=== PATIENT | male | born 1955 | race Caucasian/White ===

== ENCOUNTER 2021-11-28 10:01 | Observation (INO) | payer OTHER ==
[~2021-11-28] VITALS: Ht 185.5 cm; Wt 99.7 kg
[2021-11-28] MEDS ORDERED: ADENOSINE 6 MG/2 ML (ADENOCARD) VIAL IV ONE ×2 (10:14→10:30)
[2021-11-28] MEDS ORDERED: dilTIAZem DRIP PRE-MIX 125 ML IV ONE (10:19)
[2021-11-28] MEDS ORDERED: ASPIRIN 81 MG CHEW (CHILDREN'S ASA) PO ONE ×2 (10:30→10:45)
[2021-11-28] MEDS ORDERED: dilTIAZem DRIP PRE-MIX 125 ML IV SCH ×2 (10:30)
--- NOTE | 2021-11-28 10:32 | ED Cardiac General ---
History of Present Illness General Chief Complaint: Cardiac/General Problems Stated Complaint: TACHY,CP,SOB Source: patient Exam Limitations: no limitations History of Present Illness Date Seen by Provider: Nov 28, 2021 Time Seen by Provider: 10:04 Initial Comments Patient to the ER by [facility] from [facility] where he was accepted in transfer with chief complaint that he has been having a GI bug similar to his with nausea vomiting diarrhea over the past couple days in the past 2 days however he has felt worn out tired with palpitations and tugging in his chest bu t no pain in his chest. He went to the ER in [place], [place] and they thought at first maybe he had SVT gave him 500 cc of saline and Identicard 6 mg followed by 12 mg which revealed underlying atrial flutter. 10 mg Cardizem IV push and transferred to our facility. Patient had good blood pressure at that time and did not need cardioversion electrically. Patient does not follow with a doctor and therefore has no known medical history. He does not smoke cigarettes. He has been using Imodium and Pepto-Bismol for his diarrhea. ASA po BURRER MARKER AXLE: No Allergies and Home Medications Allergies Coded Allergies: No Known Drug Allergies (Unverified , 11/28/21) Patient Home Medication List Home Medication List Reviewed: Yes Review of Systems Review of Systems Constitutional: No chills, No diaphoresis EENTM: No Blurred Vision, No Double Vision Respiratory: Denies Cough, Denies Shortness of Air Cardiovascular: Denies Chest Pain, Denies Lightheadedness Gastrointestinal: See HPI; Denies Abdominal Pain, Denies Constipated; Diarrhea, Nausea; Denies Poor Appetite; Vomiting Genitourinary: Denies Burning, Denies Discharge Musculoskeletal: No back pain, No joint pain All Other Systems Reviewed Negative Unless Noted: Yes Past Wyarono-Frxlcb-Exdoux Hx Patient Social History Tobacco Use?: No Use of E-Cig and/or Vaping dev: No Substance use?: No Alcohol Use?: Yes Alcohol Frequency: Daily Pt feels they are or have been: No Immunizations Up To Date First/Initial COVID19 Vaccinat: 2020 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 oz. kg; BMI Method: General Appearance: WD/WN, Mild Distress HEENT: PERRL/EOMI, Pharynx Normal, Moist Mucous Membranes Neck: Full Range of Motion, Normal Inspection Respiratory: Lungs Clear, Normal Breath Sounds, No Accessory Muscle Use, No Respiratory Distress Cardiovascular: Regular Rate, Rhythm, No Edema, Normal Peripheral Pulses, Tachycardia (160) Gastrointestinal: Normal Bowel Sounds, Non Tender, Soft Extremity: Normal Capillary Refill, Normal Inspection, No Pedal Edema Neurologic/Psychiatric: Alert, Oriented x3, No Motor/Sensory Deficits Skin: Normal Color, Warm/Dry Progress/Results/Core Measures Results/Orders Lab Results Laboratory Tests Test 11/28/21 10:15 Range/Units White Blood Count 9.2 4.3-11.0 10^3/uL Red Blood Count 4.77 4.30-5.52 10^6/uL Hemoglobin 13.4 13.3-17.7 g/dL Hematocrit 43 40-54 % Mean Corpuscular Volume 90 80-99 fL Mean Corpuscular Hemoglobin 28 25-34 pg Mean Corpuscular Hemoglobin Concent 31 L 32-36 g/dL Red Cell Distribution Width 13.4 10.0-14.5 % Platelet Count 248 130-400 10^3/uL Mean Platelet Volume 10.9 9.0-12.2 fL Immature Granulocyte % (Auto) 1 % Neutrophils (%) (Auto) 68 42-75 % Lymphocytes (%) (Auto) 13 12-44 % Monocytes (%) (Auto) 18 H 0-12 % Eosinophils (%) (Auto) 1 0-10 % Basophils (%) (Auto) 0 0-10 % Neutrophils # (Auto) 6.2 1.8-7.8 10^3/uL Lymphocytes # (Auto) 1.2 1.0-4.0 10^3/uL Monocytes # (Auto) 1.7 H 0.0-1.0 10^3/uL Eosinophils # (Auto) 0.1 0.0-0.3 10^3/uL Basophils # (Auto) 0.0 0.0-0.1 10^3/uL Immature Granulocyte # (Auto) 0.1 0.0-0.1 10^3/uL Prothrombin Time 13.9 12.2-14.7 SEC INR Comment 1.0 0.8-1.4 Activated Partial Thromboplast Time 28 24-35 SEC Sodium Level 133 L 135-145 MMOL/L Potassium Level 3.9 3.6-5.0 MMOL/L Chloride Level 98 98-107 MMOL/L Carbon Dioxide Level 23 21-32 MMOL/L Anion Gap 12 5-14 MMOL/L Blood Urea Nitrogen 15 7-18 MG/DL Creatinine 1.29 0.60-1.30 MG/DL Estimat Glomerular Filtration Rate 62 BUN/Creatinine Ratio 12 Glucose Level 112 H 70-105 MG/DL Calcium Level 8.9 8.5-10.1 MG/DL Corrected Calcium 9.2 8.5-10.1 MG/DL Magnesium Level 2.1 1.6-2.4 MG/DL Total Bilirubin 0.5 0.1-1.0 MG/DL Aspartate Amino Transf (AST/SGOT) 15 5-34 U/L Alanine Aminotransferase (ALT/SGPT) 13 0-55 U/L Alkaline Phosphatase 55 40-136 U/L Myoglobin 52.9 10.0-92.0 NG/ML Troponin I 0.395 *H <0.028 NG/ML Total Protein 6.1 L 6.4-8.2 GM/DL Albumin 3.6 3.2-4.5 GM/DL My Orders Orders - SUSIE VALADEZ Adenosine Injection (Adenocard Injection (11/28/21 10:14) Diltiazem Drip Pre-Mix (Cardizem Drip Pr (11/28/21 10:19) Diltiazem Drip Pre-Mix (Cardizem Drip Pr (11/28/21 10:30) Diltiazem Drip Pre-Mix (Cardizem Drip Pr (11/28/21 10:30) Diltiazem Injection (Cardizem Injection) (11/28/21 10:30) Adenosine Injection (Adenocard Injection (11/28/21 10:30) Cbc With Automated Diff (11/28/21 10:26) Magnesium (11/28/21 10:26) Chest 1 View, Ap/Pa Only (11/28/21 10:26) Comprehensive Metabolic Panel (11/28/21 10:26) Myoglobin Serum (11/28/21 10:26) Protime With Inr (11/28/21 10:26) Partial Thromboplastin Time (11/28/21 10:26) O2 (11/28/21 10:26) Lipid Panel (11/29/21 06:00) Ed Iv/Invasive Line Start (11/28/21 10:26) Troponin I George (11/28/21 10:26) Aspirin Chewable Tablet (Baby Aspirin Ch (11/28/21 10:30) Apixaban Tablet (Eliquis Tablet) (11/28/21 10:45) Aspirin Chewable Tablet (Baby Aspirin Ch (11/28/21 10:45) Ed Iv/Invasive Line Start (11/28/21 10:37) Lactated Ringers (Lr 1000 Ml Iv Solution (11/28/21 10:45) Ekg Tracing (11/28/21 10:38) Ekg Tracing (11/28/21 10:38) Medications Given in ED Current Medications Medications Dose Ordered Sig/Yoselyn Route Start Time Stop Time Status Last Admin Dose Admin Adenosine 12 mg ONCE ONCE IV 11/28/21 10:30 11/28/21 10:31 DC 11/28/21 10:29 12 MG Apixaban 5 mg ONCE ONCE PO 11/28/21 10:45 11/28/21 10:46 DC 11/28/21 11:16 5 MG Aspirin 324 mg ONCE ONCE PO 11/28/21 10:30 11/28/21 10:31 DC 11/28/21 10:31 324 MG Diltiazem HCl 10 mg ONCE ONCE IVP 11/28/21 10:30 11/28/21 10:31 DC 11/28/21 10:31 10 MG Lactated Ringer's 1,000 ml @ 0 mls/hr Q0M ONCE IV 11/28/21 10:45 11/28/21 10:46 DC 11/28/21 11:17 0 MLS/HR Vital Signs/I&O 11/28/21 10:01 Temp 36.4 Pulse 161 Resp 18 B/P (MAP) 114/88 (97) Pulse Ox 95 O2 Delivery Room Air Progress Progress Note : Time: 10:36 Progress Note A single dose of 12 mg Identicard was given which revealed underlying atrial flutter at a rate of about 160. Gave him an additional 10 mg Cardizem, Eliquis and a liter of lactated Ringer's and will check electrolytes, kidney function labs and repeat a troponin here. Initial ECG Impression Date: Nov 28, 2021 Initial ECG Impression Time: 10:07 Initial ECG Rate: 161 Initial ECG Rhythm: A Fib/Flutter Initial ECG Intervals: QT (470) Initial ECG Impression: Atrial Fibrillation w/RVR Initial ECG Comparisson: No Previous ECG Available Comment Atrial flutter are suspected with rapid ventricular response. Rate 160. Borderline prolonged QTC. EKG : EKG Time: 10:15 Rate: 160 Rhythm: A Fib/Flutter ECG Comparisson: Unchanged ECG Impression: Atrial Fibrillation w/RVR Comment EKG read during push of 12 mg Identicard demonstrated a sawtooth atrial flutter pattern underneath the QRS complexes. No appreciable ST elevation or depression. Diagnostic Imaging Diagonstic Imaging: Xray Plain Films/CT/US/NM/MRI: chest Comments [facility]. [place], [place] NAME: DERRICK MERINO [facility] REC#: [id number] PT STATUS: ADM Shante : 1955 PHYSICIAN: SUSIE VALADEZ MD ADMIT DATE: 11/28/21/ICU Draft Date of Exam:11/28/21 CHEST 1 VIEW, AP/PA ONLY CLINICAL INDICATION: Patient with chest pain, tachycardia and chest pain. Patient shortness of breath. EXAM: Portable chest x-ray upright view. COMPARISON: Chest x-ray dated 02/03/2014. FINDINGS: Lungs/pleura: Lungs are clear. There is no pneumothorax. There is no pleural effusion. Mediastinum: There is interval prominence of the lower mediastinal region which may represent the distal thoracic aorta or hiatal hernia noted. Pulmonary vasculature: Unremarkable. Heart: Unremarkable. Bones/extrathoracic soft tissue: Unremarkable. IMPRESSION: 1: There is interval prominence of the lower mediastinal region which may represent a hiatal hernia or tortuous or enlarged distal thoracic aorta. Chest x-ray PA and lateral views would help better evaluate. 2: Otherwise, there is no radiographic evidence of acute cardiopulmonary process. Dictated on workstation # [id number] Dict: 11/28/21 1112 Trans: 11/28/21 1129 [id number] Interpreted by: CHAPIS LUCERO MD Electronically signed by: Reviewed: Reviewed by Me Departure Communication (Admissions) Time/Spoke to Admitting Phy: 10:40 Discussed the case with Dr. José, medicine team and she agrees to observe the patient on the ICU on a Cardizem drip. Consult cardiology. Time/Spoke to Consulting Phy: 10:30 Discussed the case with Dr. Oshea, cardiology and he agrees to consult on the case. He would like electrolytes checked, repeat labs and Eliquis. He is okay with aspirin at this time. Impression Primary Impression: Atrial flutter with rapid ventricular response Additional Impression: Gastroenteritis and colitis, viral Disposition: ADMITTED INPATIENT Condition: Stable Admissions Decision to Admit Reason: Admit from ER (General) Decision to Admit/Date: Nov 28, 2021 Time/Decision to Admit Time: 10:30 Departure-Patient Inst. Referrals: NO,LOCAL PHYSICIAN (PCP/Family) Primary Care Physician SUSIE VALADEZ Nov 28, 2021 10:32
[2021-11-28 10:41] LABS: BASOPHILS % (AUTO) 0 % (0-10); EOSINOPHILS # (AUTO) 0.1 10^3/uL (0.0-0.3); EOSINOPHILS % (AUTO) 1 % (0-10); HEMATOCRIT 43 % (40-54); HEMOGLOBIN 13.4 g/dL (13.3-17.7); LYMPHOCYTES # (AUTO) 1.2 10^3/uL (1.0-4.0); LYMPHOCYTES % (AUTO) 13 % (12-44); MEAN CORPUSCULAR HEMOGLOBIN 28 pg (25-34); MEAN CORPUSCULAR HGB CONC 31 g/dL (32-36); MEAN CORPUSCULAR VOLUME 90 fL (80-99); MEAN PLATELET VOLUME 10.9 fL (9.0-12.2); MONOCYTES # (AUTO) 1.7 10^3/uL (0.0-1.0); MONOCYTES % (AUTO) 18 % (0-12); NEUTROPHILS # (AUTO) 6.2 10^3/uL (1.8-7.8); NEUTROPHILS % (AUTO) 68 % (42-75); PLATELET COUNT 248 10^3/uL (130-400); WHITE BLOOD COUNT 9.2 10^3/uL (4.3-11.0)
[2021-11-28] MEDS ORDERED: LACTATED RINGERS 1,000 ML IV ONE (10:45)
[2021-11-28] MEDS ORDERED: APIXABAN 5 MG (ELIQUIS) TABLET PO ONE (10:45)
[2021-11-28 10:53] LABS: ALBUMIN 3.6 GM/DL (3.2-4.5); POTASSIUM 3.9 MMOL/L (3.6-5.0)
[2021-11-28 10:54] LABS: CALCIUM 8.9 MG/DL (8.5-10.1)
[2021-11-28 10:56] LABS: TOTAL PROTEIN 6.1 GM/DL (6.4-8.2)
[2021-11-28 10:57] LABS: BILIRUBIN,TOTAL 0.5 MG/DL (0.1-1.0)
[2021-11-28 10:58] LABS: PROTHROMBIN TIME PATIENT 13.9 SEC (12.2-14.7)
[2021-11-28 10:59] LABS: CREATININE SERUM 1.29 MG/DL (0.60-1.30)
[2021-11-28 11:02] LABS: MAGNESIUM 2.1 MG/DL (1.6-2.4)
--- NOTE | 2021-11-28 11:30 | Diagnostic Imaging Report ---
CLINICAL INDICATION: Patient with chest pain, tachycardia and chest pain. Patient shortness of breath. EXAM: Portable chest x-ray upright view. COMPARISON: Chest x-ray dated 02/03/2014. FINDINGS: Lungs/pleura: Lungs are clear. There is no pneumothorax. There is no pleural effusion. Mediastinum: There is interval prominence of the lower mediastinal region which may represent the distal thoracic aorta or hiatal hernia noted. Pulmonary vasculature: Unremarkable. Heart: Unremarkable. Bones/extrathoracic soft tissue: Unremarkable. IMPRESSION: 1: There is interval prominence of the lower mediastinal region which may represent a hiatal hernia or tortuous or enlarged distal thoracic aorta. Chest x-ray PA and lateral views would help better evaluate. 2: Otherwise, there is no radiographic evidence of acute cardiopulmonary process. Dictated by: Dictated on workstation # [id number]
[2021-11-28 11:39] VITALS: BP 128/92
[2021-11-28] MEDS ORDERED: LOPERAMIDE 2 MG (IMODIUM) TABLET PO PRN (12:30)
[2021-11-28] MEDS ORDERED: ACETAMINOPHEN 325 MG TABLET PO PRN (12:30)
[2021-11-28] MEDS ORDERED: ONDANSETRON 4 MG/2 ML (SDV) Z0FRAN IV PRN (12:30)
--- NOTE | 2021-11-28 12:49 | Consultation-Cardiology ---
HPI-Cardiology Cardiology Consultation Date of Consultation 11/28/21 Date of Admission 11/28/21 Time Seen by Provider: 12:40 Attending Physician/PCP: YELENA LOCKETT MD HPI Patient is a 66 year old white male who presents to via [place] [facility] ED via EMS from [place], [place] ED with complaints of 3 day history of nausea, vomiting, diarrhea, SOB, and palpitations. Reports his became sick early last week with similar symptoms he's currently experiencing now. Presented to clinic in [place], [place] and had EKG done and was sent to the ED there. In ED he received 2 doses of adenosine, a 500cc fluid bolus, and 10mg of cardizem IVP. Was subseq uently transferred to via [place] [facility] ED via EMS. Was found to be in atrial flutter with RVR and was given another 10mg cardizem IVP and cardizem gtt was started. Started on ASA and eliquis as well. Reports vomiting beginning Friday and lasting for 24 hours with diarrhea developing Friday and resolving by Friday. Reports lightheadedness, dizziness, and palpitations began late Friday along with SOB which had worsened today prompting him to present for care. Denies relevant past medical history. Doesn't routinely follow with a pcp. Former smoke, quit about 12 years ago. Currently he denies any SOB, chest pain/pressure, dizziness, palpitations, or leg swelling. Home Medications & Allergies Allergies: Coded Allergies: No Known Drug Allergies (Unverified , 11/28/21) ZRL-Moftde-Oznkwc Hx Patient Social History Marital Status: Employed/Student: employed Recreational Drug Use: No Smoking Status: Former Smoker (1ppd x 10 year history, quit 12 years ago) Recent Hopitalizations: No Physical Abuse Screen: No Sexual Abuse: No Have you traveled recently?: No Alcohol Use?: Yes (Daily beer approx 4-5 days per week) Immunizations Up To Date Tetanus Booster (TDap): Unknown Past Medical History GERD Esophageal strictures treated with balloon dilatations in past Inguinal hernias bilaterally s/p repair with mesh placement Umbilical hernia s/p repair with mesh placement Left ankle fracture with plate and screw fixation H/o tobaccoism Family Medical History Significant Family History: No Pertinent Family Hx Review of Systems-General Review of Systems Constitutional: No chills, No diaphoresis, No dizziness, No fever; malaise, weakness EENTM: no symptoms reported; No blurred vision, No double vision, No nose congestion Respiratory: No cough, No hemoptysis; short of breath; No wheezing Cardiovascular: see HPI; No edema, No Hx of Intervention; palpitations; No syncope Gastrointestinal: No abdominal pain, No constipation; diarrhea, heartburn, nausea, vomiting Genitourinary: no symptoms reported; No decreased output, No dysuria, No frequency Musculoskeletal: no symptoms reported; No back pain, No joint pain Skin: no symptoms reported; No change in color, No change in hair/nails, No lesions, No rash Psychiatric/Neurological: No Symptoms Reported; Denies Anxiety, Denies Depressed, Denies Numbness, Denies Tingling All Other Systems Reviewed Negative Unless Noted: Yes Reviewed Test Results Reviewed Test Results Radiology NAME: DERRICK MERINO [facility] REC#: [id number] PT STATUS: ADM Shante : 1955 PHYSICIAN: SUSIE VALADEZ MD ADMIT DATE: 11/28/21/ICU Draft Date of Exam:11/28/21 CHEST 1 VIEW, AP/PA ONLY CLINICAL INDICATION: Patient with chest pain, tachycardia and chest pain. Patient shortness of breath. EXAM: Portable chest x-ray upright view. COMPARISON: Chest x-ray dated 02/03/2014. FINDINGS: Lungs/pleura: Lungs are clear. There is no pneumothorax. There is no pleural effusion. Mediastinum: There is interval prominence of the lower mediastinal region which may represent the distal thoracic aorta or hiatal hernia noted. Pulmonary vasculature: Unremarkable. Heart: Unremarkable. Bones/extrathoracic soft tissue: Unremarkable. IMPRESSION: 1: There is interval prominence of the lower mediastinal region which may represent a hiatal hernia or tortuous or enlarged distal thoracic aorta. Chest x-ray PA and lateral views would help better evaluate. 2: Otherwise, there is no radiographic evidence of acute cardiopulmonary process. Dictated on workstation # [id number] Dict: 11/28/21 1112 Trans: 11/28/21 1129 [id number] Interpreted by: CHAPIS LUCERO MD Electronically signed by: Physical Exam Physical Exam Vital Signs Vital Signs - First Documented 11/28/21 10:01 Temp 36.4 Pulse 161 Resp 18 B/P (MAP) 114/88 (97) Pulse Ox 95 O2 Delivery Room Air Capillary Refill : Less Than 3 Seconds Height, Weight, BMI Height: '" Weight: lbs. oz. kg; 28.97 BMI Method: General Appearance: WD/WN, Mild Distress HEENT: PERRL/EOMI, Pharynx Normal, Moist Mucous Membranes Neck: Full Range of Motion, Normal Inspection Respiratory: Lungs Clear, Normal Breath Sounds, No Accessory Muscle Use, No Respiratory Distress Cardiovascular: No Regular Rate, Rhythm; No Edema, Normal Peripheral Pulses, Irregularly Irregular, Tachycardia (160) Gastrointestinal: Normal Bowel Sounds, Non Tender, Soft Extremity: Normal Capillary Refill, Normal Inspection, No Pedal Edema Neurologic/Psychiatric: Alert, Oriented x3, Other (moves all limbs equally) Skin: Normal Color, Warm/Dry A/P-Cardiology Admission Diagnosis Palpitations, shortness of breath and chest discomfort related to atrial flutter with RVR Elevated troponin, probably type 2 PA due to tachycardia, but also need to consider cor ischemia N/V/D likely due to a viral syndrome, now improved Assessment/Plan Atrial flutter with RVR -continue cardizem gtt. Eliquis and ASA. Elevated troponin -Troponin 0.395. Continue to trend troponin. Patient reports history of chest pain 4 years ago and had stress test at that time, negative per his report. No history of cardiac catheterization. Will consider stress test or cath Palpitations -telemetry, continue to monitor. Shortness of breath -Improving per patient report. Continue to monitor. Nausea, Vomiting, and Diarrhea -Resolved per patient report. -monitor electrolytes and replete as needed. GERD -continue home omeprazole. H/o remote tobaccoism -Encouraged continued abstinence. Clinical Quality Measures AMI/AHF: ASA po Prior to arrival: No Supervisory-Addendum Brief Verification & Attestation Participated in pt care: history, MDM, physical Personally performed: exam, history, MDM, supervision of care Care discussed with: Medical Student Procedures: n/a I interviewed, examined, and discussed with the med student patient's H&P and diagnoses and plan I also reviewed and discussed with the patient our diagnoses and the treatment plan TONYA HODGE MED STUDENT Nov 28, 2021 12:[address] [facility] CCDS Nov 28, 2021 17:58
[2021-11-28] MEDS: dilTIAZem DRIP PRE-MIX 125 ML IV SCH ×2 (12:58→17:56)
[2021-11-28] MEDS: LACTATED RINGERS 1,000 ML IV SCH ×2 (12:58→20:55)
--- NOTE | 2021-11-28 15:52 | History & Physical-Hospitalist ---
History of Present Illness HPI/Chief Complaint Patient 66-year-old male who presented to the hospital secondary to weakness and shortness of breath. He states past few days he has been dealing with a GI bug and having diarrhea. He attributed his symptoms to that but when his GI symptoms resolved he remained very worn out and thought he was having palpitations. He decided to seek care at an urgent clinic this morning and was found to have a rapid heart rate and was referred to the [place] emergency room. From there he was found to be in atrial flutter with rapid ventricular rate and was transferred to the emergency room here he was given adenosine which slowed his rate but he remained in a flutter he was started on a Cardizem drip and admitted to the ICU. His rate is now in the 70s he reports feeling much better. Source: patient Date Seen 11/28/21 Time Seen by a Provider: 14:00 Attending Physician Yelena José MD PCP No,Local Physician Referring Physician Date of Admission Nov 28, 2021 at 10:50 Home Medications & Allergies Home Medications Reviewed patient Home Medication Reconciliation performed by pharmacy medication reconciliations tool grinding technician and/or nursing. Patients Allergies have been reviewed. Allergies Allergies Coded Allergies No Known Drug Allergies (Unverified11/28/21) Past Rkcdpii-Omhtnk-Uskjgb Hx Patient Social History Marrital Status: Employed/Student: employed Tobacco Use?: No Tobacco type used: Cigarettes Smoking Status: Former Smoker (1ppd x 10 year history, quit 12 years ago) Use of E-Cig and/or Vaping dev: No Substance use?: No Alcohol Use?: Yes (Daily beer approx 4-5 days per week) Alcohol type: Beer Alcohol Frequency: Daily Pt feels they are or have been: No Immunizations Up To Date First/Initial COVID19 Vaccinat: MADHURI AND MADHURI- DATE UNKNOWN Second COVID19 Vaccination Buster: BOOSTER TAKEN- DATE UNKNOWN Tetanus Booster (TDap): Unknown Current Status Advance Directives: No Communicates: Does Not Communicate Primary Language: Belizean Preferred Spoken Language: Belizean Is interpretation needed?: No Sensory deficits: Vision impairment Implanted or Applied Medical D: Orthopedic hardware Family Medical History No Pertinent Family Hx Review of Systems Constitutional: malaise, weakness EENTM: no symptoms reported Respiratory: dyspnea on exertion, orthopnea, short of breath Cardiovascular: No chest pain, No edema, No Hx of Intervention; palpitations Gastrointestinal: diarrhea, nausea, vomiting Genitourinary: no symptoms reported Musculoskeletal: no symptoms reported Skin: no symptoms reported Psychiatric/Neurological: No Symptoms Reported Physical Exam Physical Exam Vital Signs Vital Signs - First Documented 11/28/21 10:01 Temp 36.4 Pulse 161 Resp 18 B/P (MAP) 114/88 (97) Pulse Ox 95 O2 Delivery Room Air Capillary Refill : Less Than 3 Seconds Height, Weight, BMI Height: '" Weight: lbs. oz. kg; 28.97 BMI Method: General Appearance: No Apparent Distress, WD/WN HEENT: PERRL/EOMI, Moist Mucous Membranes Neck: Normal Inspection, Supple Respiratory: Lungs Clear, No Accessory Muscle Use, No Respiratory Distress Cardiovascular: No JVD, No Murmur Gastrointestinal: Normal Bowel Sounds, Non Tender, Soft Extremity: Normal Capillary Refill, No Calf Tenderness, No Pedal Edema Neurologic/Psychiatric: Alert, Oriented x3, Normal Mood/Affect Skin: Normal Color, Warm/Dry Results Results/Procedures Labs Laboratory Tests 11/28/21 10:15 Patient resulted labs reviewed. Imaging: Reviewed Imaging Report Imaging [facility] [place], [place] NAME: DERRICK MERINO [facility] REC#: [id number] PT STATUS: ADM Shante : 1955 PHYSICIAN: SUSIE VALADEZ MD ADMIT DATE: 11/28/21/ICU Draft Date of Exam:11/28/21 CHEST 1 VIEW, AP/PA ONLY CLINICAL INDICATION: Patient with chest pain, tachycardia and chest pain. Patient shortness of breath. EXAM: Portable chest x-ray upright view. COMPARISON: Chest x-ray dated 02/03/2014. FINDINGS: Lungs/pleura: Lungs are clear. There is no pneumothorax. There is no pleural effusion. Mediastinum: There is interval prominence of the lower mediastinal region which may represent the distal thoracic aorta or hiatal hernia noted. Pulmonary vasculature: Unremarkable. Heart: Unremarkable. Bones/extrathoracic soft tissue: Unremarkable. IMPRESSION: 1: There is interval prominence of the lower mediastinal region which may represent a hiatal hernia or tortuous or enlarged distal thoracic aorta. Chest x-ray PA and lateral views would help better evaluate. 2: Otherwise, there is no radiographic evidence of acute cardiopulmonary process. Dictated on workstation # [id number] Dict: 11/28/21 1112 Trans: 11/28/21 1129 [id number] Interpreted by: CHAPIS LUCERO MD Electronically signed by: Assessment/Plan Admission Diagnosis a-flutter with RVR Admission Status: Inpatient Order (span 2 midnights) Reason for Inpatient Admission: see below Assessment and Plan a-flutter with RVR NSTEMI New onset On cardizem gtt Eliquis for stroke ppx Echo Cardiology consulted, appreciate recs Troponin elevated at 0.395, trend Telemetry DVT ppx: Eliquis as above Diagnosis/Problems Diagnosis/Problems (1) Atrial flutter with rapid ventricular response Status: Acute Clinical Quality Measures AMI/AHF: ASA po Prior to arrival: YELENA Stephenson MD Nov 28, 2021 15:52
--- NOTE | 2021-11-28 16:22 | Tele-ICU Consult ---
History of Present Illness History of Present Illness Date Seen by Provider: Nov 28, 2021 Time Seen by Provider: 14:03 Date of Admission (Tele-ICU Physician , consultation) Available chart/ vitals / labs / Images reviewed H&P is from ER notes Patient's information available about PMH, Shx, Fhx allergy reviewed in EMR. ROS as per chart and RN report Now in ICU, hemodynamically stable Video assessment done using teleICU camera, rest of exam as per RN Discussed with RN. Consultants: kathrine Hospital course: (11/28) 66 Y Transfer from outside hospital ( 3 day history of nausea, vomiting, diarrhea, SOB, and palpitations) admitted with A-flutter w RVR - Adenosine 6, 12 given in ED A/P A flatter RVR - 2 doses of adenosine , started on cardizem gtt - AC with eliquis Elev trop - as per cards N/V for 3 days - ? viral gasto-enteritis - no lab signs of dehydration Lines : (Central Line Necessity Reviewed) Cai: OG: Nutrition: Analgesia: Anxiety/ delirium VTE Prophylaxis: eliquis Stress Ulcer Prophylaxis: na Plans in collaboration with bedside consultants and IM MDs. Discussed with RN to reach out if any questions or concerns A total of 20 minutes of critical care time was devoted to this patient today, required to treat and/or prevent further deterioration of critical care condition ( as above Allergies and Home Medications Allergies Coded Allergies: No Known Drug Allergies (Unverified , 11/28/21) Past Medical/Social/Family Hx Patient Social History Marrital Status: Employed/Student: employed Tobacco Use?: No Tobacco type used: Cigarettes Smoking Status: Former Smoker (1ppd x 10 year history, quit 12 years ago) Use of E-Cig and/or Vaping dev: No Substance use?: No Alcohol Use?: Yes (Daily beer approx 4-5 days per week) Alcohol type: Beer Alcohol Frequency: Daily Pt stated abuse/neglect: No Immunizations Up To Date First/Initial COVID19 Vaccinat: MADHURI AND MADHURI- DATE UNKNOWN Second COVID19 Vaccination Buster: BOOSTER TAKEN- DATE UNKNOWN Tetanus Booster (TDap): Unknown Current Status Advance Directives: No Communicates: Does Not Communicate Primary Language: Bahraini Preferred Spoken Language: Bahraini Is interpretation needed?: No Sensory deficits: Vision impairment Implanted or Applied Medical D: Orthopedic hardware Review of Systems Constitutional: see HPI Focused Exam Height, Weight, BMI Height: '" Weight: lbs. oz. kg; 28.97 BMI Method: Exam Exam Patient acknowledged, consented, and participated in this virtual visit which was conducted using real time audio/video Vital Signs Date Time Temp Pulse Resp B/P (MAP) Pulse Ox O2 Delivery O2 Flow Rate FiO2 11/28/21 15:53 36.8 11/28/21 13:00 81 14 127/97 95 11/28/21 12:00 125 11/28/21 12:00 99 Room Air 11/28/21 12:00 84 22 143/118 98 11/28/21 11:39 86 16 128/92 97 Room Air 11/28/21 10:01 36.4 161 18 114/88 (97) 95 Room Air Height & Weight Height: '" Weight: lbs. oz. kg; 28.97 BMI Method: General Appearance: No Apparent Distress, WD/WN HEENT: PERRL/EOMI, Moist Mucous Membranes Neck: Normal Inspection, Supple Respiratory: Lungs Clear, No Accessory Muscle Use, No Respiratory Distress Cardiovascular: No JVD, No Murmur Capillary Refill: Less Than 3 Seconds Extremity: Normal Capillary Refill, No Calf Tenderness, No Pedal Edema Neurologic/Psychiatric: Alert, Oriented x3, Normal Mood/Affect Skin: Normal Color, Warm/Dry Results Lab Laboratory Tests 11/28/21 10:15 Assessment/Plan Assessment/Plan ` CHAPARRO GIRON MD Nov 28, 2021 16:22
[2021-11-28] MEDS: APIXABAN 5 MG (ELIQUIS) TABLET PO SCH (20:15)
[2021-11-29 05:20] LABS: BASOPHILS % (AUTO) 0 % (0-10); EOSINOPHILS # (AUTO) 0.1 10^3/uL (0.0-0.3); EOSINOPHILS % (AUTO) 2 % (0-10); HEMATOCRIT 37 % (40-54); HEMOGLOBIN 11.7 g/dL (13.3-17.7); LYMPHOCYTES # (AUTO) 1.2 10^3/uL (1.0-4.0); LYMPHOCYTES % (AUTO) 23 % (12-44); MEAN CORPUSCULAR HEMOGLOBIN 28 pg (25-34); MEAN CORPUSCULAR HGB CONC 32 g/dL (32-36); MEAN CORPUSCULAR VOLUME 90 fL (80-99); MEAN PLATELET VOLUME 10.8 fL (9.0-12.2); MONOCYTES # (AUTO) 0.8 10^3/uL (0.0-1.0); MONOCYTES % (AUTO) 15 % (0-12); NEUTROPHILS % (AUTO) 59 % (42-75); PLATELET COUNT 214 10^3/uL (130-400); WHITE BLOOD COUNT 5.1 10^3/uL (4.3-11.0)
[2021-11-29] MEDS: LACTATED RINGERS 1,000 ML IV SCH ×2 (05:28→13:44)
[2021-11-29 05:37] LABS: POTASSIUM 3.8 MMOL/L (3.6-5.0)
[2021-11-29 05:38] LABS: ALBUMIN 3.2 GM/DL (3.2-4.5); CALCIUM 8.5 MG/DL (8.5-10.1)
[2021-11-29 05:40] LABS: TOTAL PROTEIN 5.4 GM/DL (6.4-8.2)
[2021-11-29 05:41] LABS: BILIRUBIN,TOTAL 0.3 MG/DL (0.1-1.0)
[2021-11-29 05:43] LABS: PHOSPHORUS 3.2 MG/DL (2.3-4.7)
[2021-11-29 05:44] LABS: CREATININE SERUM 1.06 MG/DL (0.60-1.30)
--- NOTE | 2021-11-29 08:48 | Progress Note - Cardiology ---
Cardiology SOAP Progress Note Subjective: No c/o CP or SOB or palpitations Objective: I&O/Vital Signs 11/29/21 11/29/21 11/29/21 11/29/21 00:00 00:00 00:00 01:00 Temp 36.4 Pulse 60 62 Resp 15 12 B/P (MAP) 120/96 95/71 Pulse Ox 94 97 94 O2 Delivery Room Air Room Air Room Air Room Air 11/29/21 11/29/21 11/29/21 11/29/21 01:00 02:00 03:00 04:00 Pulse 62 63 65 61 Resp 15 15 14 B/P (MAP) 108/79 110/82 108/77 Pulse Ox 95 95 96 O2 Delivery Room Air Room Air Room Air 11/29/21 11/29/21 11/29/21 11/29/21 04:00 05:00 05:29 06:00 Temp 36.3 Pulse 73 79 Resp 17 13 B/P (MAP) 126/95 121/90 Pulse Ox 97 95 94 O2 Delivery Room Air Room Air Room Air 11/29/21 11/29/21 11/29/21 11/29/21 07:00 07:54 08:00 08:00 Temp 36.6 Pulse 76 76 81 Resp 20 20 B/P (MAP) 131/96 143/107 Pulse Ox 94 97 O2 Delivery Room Air Room Air 11/29/21 00:00 Intake Total 2725 ml Output Total 1500 ml Balance 1225 ml Constitutional: AAO x 3 Respiratory: No accessory muscle use, No respiratory distress; chest expansion is symmetric, chest is bilaterally symmetric Cardiovascular: irregularly irregular; No JVD; S1 and S2 Gastrointestional: No tender; soft, audible bowel sounds Extremities: no lower extremity edema bilateral Neurologic/Psychiatric: grossly intact (moves all extremities) Skin: No rash on exposed areas, No ulcerations on exposed areas Results/Procedures: Labs Laboratory Tests 11/28/21 10:15: White Blood Count 9.2, Red Blood Count 4.77, Hemoglobin 13.4, Hematocrit 43, Mean Corpuscular Volume 90, Mean Corpuscular Hemoglobin 28, Mean Corpuscular Hemoglobin Concent 31L, Red Cell Distribution Width 13.4, Platelet Count 248, Mean Platelet Volume 10.9, Immature Granulocyte % (Auto) 1, Neutrophils (%) (Auto) 68, Lymphocytes (%) (Auto) 13, Monocytes (%) (Auto) 18H, Eosinophils (%) (Auto) 1, Basophils (%) (Auto) 0, Neutrophils # (Auto) 6.2, Lymphocytes # (Auto) 1.2, Monocytes # (Auto) 1.7H, Eosinophils # (Auto) 0.1, Basophils # (Auto) 0.0, Immature Granulocyte # (Auto) 0.1, Prothrombin Time 13.9, INR Comment 1.0, Activated Partial Thromboplast Time 28, Sodium Level 133L, Potassium Level 3.9, Chloride Level 98, Carbon Dioxide Level 23, Anion Gap 12, Blood Urea Nitrogen 15, Creatinine 1.29, Estimat Glomerular Filtration Rate 62, BUN/Creatinine Ratio 12, Glucose Level 112H, Calcium Level 8.9, Corrected Calcium 9.2, Magnesium Level 2.1, Total Bilirubin 0.5, Aspartate Amino Transf (AST/SGOT) 15, Alanine Aminotransferase (ALT/SGPT) 13, Alkaline Phosphatase 55, Myoglobin 52.9, Troponin I 0.395*H, Total Protein 6.1L, Albumin 3.6 11/28/21 16:05: Troponin I 0.399*H 11/28/21 21:45: Troponin I 0.344*H 11/29/21 04:58: White Blood Count 5.1, Red Blood Count 4.14L, Hemoglobin 11.7L, Hematocrit 37L, Mean Corpuscular Volume 90, Mean Corpuscular Hemoglobin 28, Mean Corpuscular Hemoglobin Concent 32, Red Cell Distribution Width 13.5, Platelet Count 214, Mean Platelet Volume 10.8, Immature Granulocyte % (Auto) 1, Neutrophils (%) (Auto) 59, Lymphocytes (%) (Auto) 23, Monocytes (%) (Auto) 15H, Eosinophils (%) (Auto) 2, Basophils (%) (Auto) 0, Neutrophils # (Auto) 3.0, Lymphocytes # (Auto) 1.2, Monocytes # (Auto) 0.8, Eosinophils # (Auto) 0.1, Basophils # (Auto) 0.0, Immature Granulocyte # (Auto) 0.0, Sodium Level 140, Potassium Level 3.8, Chloride Level 106, Carbon Dioxide Level 21, Anion Gap 13, Blood Urea Nitrogen 10, Creatinine 1.06, Estimat Glomerular Filtration Rate 78, BUN/Creatinine Ratio 9, Glucose Level 99, Calcium Level 8.5, Corrected Calcium 9.1, Magnesium Level 2.0, Total Bilirubin 0.3, Aspartate Amino Transf (AST/SGOT) 12, Alanine Aminotransferase (ALT/SGPT) 12, Alkaline Phosphatase 46, Total Protein 5.4L, Albumin 3.2, Phosphorus Level 3.2, Triglycerides Level 65, Cholesterol Level 115, LDL Cholesterol Direct 54, VLDL Cholesterol 13, HDL Cholesterol 46 Laboratory Tests 11/28/21 10:15 11/29/21 04:58 A/P: Assessment: Atrial flutter with RVR - Cardizem gtt stopped overnight d/t HR in the 50's - start oral this morning for rate contro - Continue Eliquis for stroke prophylaxis Elevated troponin, NSTEMI vs Type 2 SC d/t a-fib/flutter with RVR - Troponin remains elevated - Advise cardiac cath Palpitations - likely d/t a-fib/flutter Shortness of breath -Improving per patient report Nausea, Vomiting, and Diarrhea -Resolved per patient report. -monitor electrolytes and replete as needed. GERD -continue home omeprazole. H/o remote tobaccoism -Encouraged continued abstinence. Plan: NSTEMI vs Type 2 SC with continue troponin elevation - advise cardiac cath; discussed the procedure, risks, benefits and potential complications of cardiac cath with possible ad hoc coronary intervention. He provides informed consent Start oral Cardizem for rate control Continue OAC with Eliquis Continue ASA Monitor lab Clinical Quality Measures AMI/AHF: ASA po Prior to arrival: ROBIN Pinto Nov 29, 2021 08:48
[2021-11-29] MEDS ORDERED: MULT-1136 PO (09:47)
[2021-11-29] MEDS ORDERED: OMEP-401 PO (09:47)
[2021-11-29] MEDS: dilTIAZem120 MG (CARDIZEM CD) CAP PO SCH ×2 (09:51→16:21)
[2021-11-29] MEDS: APIXABAN 5 MG (ELIQUIS) TABLET PO SCH (09:52)
--- NOTE | 2021-11-29 10:25 | Tele-ICU Progress Note ---
Subjective Date Seen by a Provider: Nov 29, 2021 Time Seen by a Provider: 10:20 Subjective/Events-last exam (Tele-ICU Physician , consultation) Available chart/vitals/labs/Images reviewed H&P is from ER notes Patient's information available about PMH, Shx, Fhx allergy reviewed in EMR. ROS as per chart and RN report Video assessment done using teleICU camera, rest of exam as per RN Subjective: No major events overnight. D/c off cardizem gtt this AM 2/2 bradycardia. Cardiology planning for cath today. Sepsis Event Evaluation Height, Weight, BMI Height: '" Weight: lbs. oz. kg; 28.97 BMI Method: Exam Exam Patient acknowledged, consented, and participated in this virtual visit which was conducted using real time audio/video Vital Signs Date Time Temp Pulse Resp B/P (MAP) Pulse Ox O2 Delivery O2 Flow Rate FiO2 11/29/21 09:06 90 13 145/106 97 Room Air 11/29/21 08:00 36.6 11/29/21 08:00 97 Room Air 11/29/21 08:00 81 20 143/107 97 Room Air 11/29/21 07:54 76 11/29/21 07:00 76 20 131/96 94 Room Air 11/29/21 06:00 79 13 121/90 94 Room Air 11/29/21 05:29 36.3 11/29/21 05:00 73 17 126/95 95 Room Air 11/29/21 04:00 97 Room Air 11/29/21 04:00 61 14 108/77 96 Room Air 11/29/21 03:00 65 15 110/82 95 Room Air 11/29/21 02:00 63 15 108/79 95 Room Air 11/29/21 01:00 62 11/29/21 01:00 62 12 95/71 94 Room Air 11/29/21 00:00 36.4 Room Air 11/29/21 00:00 97 Room Air 11/29/21 00:00 60 15 120/96 94 Room Air 11/28/21 20:00 36.4 11/28/21 20:00 99 Room Air 11/28/21 20:00 81 13 115/77 96 Room Air 11/28/21 19:00 50 11/28/21 19:00 Room Air 11/28/21 19:00 74 15 104/75 95 Room Air 11/28/21 18:00 73 10 121/90 96 Room Air 11/28/21 17:00 65 9 103/82 95 Room Air 11/28/21 16:00 95 26 116/89 98 11/28/21 15:53 36.8 11/28/21 15:00 91 16/97 11/28/21 14:00 90 12 138/102 90 11/28/21 13:00 81 14 127/97 95 11/28/21 12:00 125 11/28/21 12:00 99 Room Air 11/28/21 12:00 84 22 143/118 98 11/28/21 11:39 86 16 128/92 97 Room Air I & O 11/29/21 07:00 Intake Total 4465 ml Output Total 2700 ml Balance 1765 ml Height & Weight Height: '" Weight: lbs. oz. kg; 28.97 BMI Method: General Appearance: WD/WN, Mild Distress HEENT: PERRL/EOMI, Pharynx Normal, Moist Mucous Membranes Neck: Full Range of Motion, Normal Inspection Respiratory: Lungs Clear, Normal Breath Sounds, No Accessory Muscle Use, No Respiratory Distress Cardiovascular: No Regular Rate, Rhythm; No Edema, Normal Peripheral Pulses, Irregularly Irregular, Tachycardia (160) Capillary Refill: Less Than 3 Seconds Extremity: Normal Capillary Refill, Normal Inspection, No Pedal Edema Neurologic/Psychiatric: Alert, Oriented x3, Other (moves all limbs equally) Skin: Normal Color, Warm/Dry Results Lab Laboratory Tests 11/28/21 10:15 11/29/21 04:58 Assessment/Plan Assessment/Plan A/P Aflutter RVR: off cardizem gtt since this AM. Cards following. Cath today - AC with eliquis Elevated troponin, NSTEMI vs Type 2 [place] d/t a-fib/flutter with RVR - Troponin remains elevated - Cardiac cath likely today Lines : (Central Line Necessity Reviewed) Cai: OG: Nutrition: Analgesia: Anxiety/ delirium VTE Prophylaxis: eliquis Stress Ulcer Prophylaxis: na Plans in collaboration with bedside consultants and IM MDs. Discussed with RN to reach out if any questions or concerns A total of 20 minutes of critical care time was devoted to this patient today, required to treat and/or prevent further deterioration of critical care condition ( as above GÉNESIS POLLACK MD Nov 29, 2021 10:25
[2021-11-29] MEDS ORDERED: NS IV 1000 ML 1,000 ML ONE (12:05)
[2021-11-29] MEDS ORDERED: HEParin (CATH LAB) 2,000 ML IV ONE (12:05)
[2021-11-29] MEDS ORDERED: LIDOCAINE 1% INJ 20 ML VIAL ONE (12:05)
[2021-11-29] MEDS ORDERED: fentaNYL INJ 100 MCG/2 ML AMP ONE (12:09)
[2021-11-29] MEDS ORDERED: MIDAZOLAM 5 MG/5 ML (VERSED) VIAL ONE (12:09)
[2021-11-29] MEDS ORDERED: PATIENT MAY USE OWN MEDS, ALL PO SCH (13:00)
[2021-11-29] MEDS ORDERED: NS IV 1000 ML 1,000 ML IV SCH (13:00)
--- NOTE | 2021-11-29 13:06 | Progress Note - Cardiology ---
Cardiology SOAP Progress Note Subjective: Vague chest discomfort has improved No shortness of breath Weakness and malaise have improved No palp or syncope No n/v/d Objective: I&O/Vital Signs 11/29/21 11/29/21 11/29/21 11/29/21 02:00 03:00 04:00 04:00 Pulse 63 65 61 Resp 15 15 14 B/P (MAP) 108/79 110/82 108/77 Pulse Ox 95 95 96 97 O2 Delivery Room Air Room Air Room Air Room Air 11/29/21 11/29/21 11/29/21 11/29/21 05:00 05:29 06:00 07:00 Temp 36.3 Pulse 73 79 76 Resp 17 13 20 B/P (MAP) 126/95 121/90 131/96 Pulse Ox 95 94 94 O2 Delivery Room Air Room Air Room Air 11/29/21 11/29/21 11/29/21 11/29/21 07:54 08:00 08:00 08:00 Temp 36.6 Pulse 76 81 Resp 20 B/P (MAP) 143/107 Pulse Ox 97 97 O2 Delivery Room Air Room Air 11/29/21 09:06 Pulse 90 Resp 13 B/P (MAP) 145/106 Pulse Ox 97 O2 Delivery Room Air 11/29/21 00:00 Intake Total 2725 ml Output Total 1500 ml Balance 1225 ml Constitutional: AAO x 3 Respiratory: No accessory muscle use, No respiratory distress; chest expansion is symmetric, chest is bilaterally symmetric Cardiovascular: irregularly irregular; No JVD; S1 and S2 Gastrointestional: No tender; soft, audible bowel sounds Extremities: no lower extremity edema bilateral Neurologic/Psychiatric: grossly intact (moves all extremities) Skin: No rash on exposed areas, No ulcerations on exposed areas Results/Procedures: Labs Laboratory Tests 11/28/21 16:05: Troponin I 0.399*H 11/28/21 21:45: Troponin I 0.344*H 11/29/21 04:58: White Blood Count 5.1, Red Blood Count 4.14L, Hemoglobin 11.7L, Hematocrit 37L, Mean Corpuscular Volume 90, Mean Corpuscular Hemoglobin 28, Mean Corpuscular Hemoglobin Concent 32, Red Cell Distribution Width 13.5, Platelet Count 214, Mean Platelet Volume 10.8, Immature Granulocyte % (Auto) 1, Neutrophils (%) (Auto) 59, Lymphocytes (%) (Auto) 23, Monocytes (%) (Auto) 15H, Eosinophils (%) (Auto) 2, Basophils (%) (Auto) 0, Neutrophils # (Auto) 3.0, Lymphocytes # (Auto) 1.2, Monocytes # (Auto) 0.8, Eosinophils # (Auto) 0.1, Basophils # (Auto) 0.0, Immature Granulocyte # (Auto) 0.0, Sodium Level 140, Potassium Level 3.8, Chloride Level 106, Carbon Dioxide Level 21, Anion Gap 13, Blood Urea Nitrogen 10, Creatinine 1.06, Estimat Glomerular Filtration Rate 78, BUN/Creatinine Ratio 9, Glucose Level 99, Calcium Level 8.5, Corrected Calcium 9.1, Phosphorus Level 3.2, Magnesium Level 2.0, Total Bilirubin 0.3, Aspartate Amino Transf (AST/SGOT) 12, Alanine Aminotransferase (ALT/SGPT) 12, Alkaline Phosphatase 46, Total Protein 5.4L, Albumin 3.2, Triglycerides Level 65, Cholesterol Level 115, LDL Cholesterol Direct 54, VLDL Cholesterol 13, HDL Cholesterol 46 Laboratory Tests 11/28/21 10:15 11/29/21 04:58 A/P: Assessment: Atrial flutter with RVR - Cardizem gtt stopped overnight d/t HR in the 50's - start oral this morning for rate contro - Continue Eliquis for stroke prophylaxis Elevated troponin, Type 2 [place] d/t a-fib/flutter with RVR - Card cath on 11/29/21: Mild CAD, LVEDP 13 mmHg, LVEF 60-65% Recent viral syndrome leading to nausea, vomiting, and diarrhea -Resolved per patient report. -monitor electrolytes and replete as needed. GERD -continue home omeprazole. H/o remote tobaccoism -Encouraged continued abstinence. Plan: Card cath performed after having obtained an informed consent Start oral Cardizem for rate control Continue OAC with Eliquis Continue ASA May d/c later today Advised f/u at our office next week Clinical Quality Measures AMI/AHF: ASA po Prior to arrival: BERNICE Enriquez MD FACP [facility] Nov 29, 2021 13:06
[2021-11-29] MEDS ORDERED: APIX5TAB PO (13:29)
[2021-11-29] MEDS ORDERED: ASPI-999 PO (13:29)
[2021-11-29] MEDS ORDERED: DILT-27 PO (13:29)
--- NOTE | 2021-11-29 13:29 | Discharge Inst-Post CATH ---
Discharge Inst-CATH/EP Post Cardiac Cath/EP D/C Inst <b>CARDIAC CATH/EP PROCEDURE DISCHARGE INSTRUCTIONS</b> ACTIVITY * Go Home directly and rest. * Limit activity of the leg (or wrist if it was used) for 7 days including aerobics, swimming, jogging, bicycling, etc. * Restrict stair-climbing for 7 days if possible, if not, climb up with your no n-cath leg, then bring together on the same step. * Avoid lifting, pushing, pulling or excessive movement of the affected ext remity for 7 days. * Customary sexual activity may be resumed after 2 days-use caution not to use a position that strains or causes pain to the affected extremity. * No driving for 24 hours. * NO SMOKING. * Avoid straining for bowel movements for 7 days. * Gentle walking on level ground is allowed. * Returning to work will depend on the type of procedure and the results. Your doctor will discuss this with you. CALL YOUR DOCTOR FOR ANY OF THE FOLLOWING: *If bleeding from the puncture site occurs- Apply gentle pressure to site with clean cloth and call your doctor or EMS. * If a knot or lump forms under the skin, increases in size, or causes pain. * If bruising appears to be worsening or moving further down your leg instead of disappearing. * Temperature above 101 F. CARE OF YOUR GROIN INCISION; * Bruising or purple discoloration of the skin near the puncture site is common. * You may shower only, no bathtub bathing for 5 days. Be careful to avoid slipping as your leg may feel stiff. * If a closure device was used on your femoral artery, please see the attached guide regarding care of the device and your leg. * Leave dressing on FOR 24 hours. CARE OF YOUR WRIST INCISION; * Bruising or purple discoloration of the skin near the puncture site is common. * You may shower. * DO NOT submerge wrist. * Leave dressing on FOR 24 hours. ROBIN DAY [facility] Nov 29, 2021 13:29
--- NOTE | 2021-11-29 13:46 | CARDIAC CATHETERIZATION ---
DATE OF SERVICE: 11/29/2021 CARDIAC CATHETERIZATION REPORT The patient is a 66-year-old man who presented with atrial flutter/fibrillation with rapid ventricular response. He was also reporting some chest discomfort. Troponin was minimally elevated. Because of symptoms and troponin elevation, we carried out cardiac catheterization after having obtained an informed consent. DESCRIPTION OF PROCEDURE: He was brought to the cardiac catheterization laboratory in a fasting state. Right groin was prepared and draped in the usual sterile fashion. Lidocaine 1% was used for local anesthesia. Modified Seldinger technique was used to advance a 5-[place] sheath in the right femoral artery. 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 We were able to engage with a 5-[place] AL1 catheter. We then used a 5-[place] pigtail catheter for left heart catheterization and left ventricular angiography. The angiography of the right femoral artery was carried out through the sheath at the end of the procedure and Mynx was used to achieve hemostasis. He tolerated the procedure well. HEMODYNAMICS: Left ventricular end-diastolic pressure following coronary angiography was 13 mmHg. There is no significant pressure gradient on pullback across the aortic valve. LEFT VENTRICULAR ANGIOGRAPHY: Left ventricular angiography was carried out in the right anterior oblique projection. Global left ventricular systolic function is normal. No regional wall motion abnormality is seen. Left ventricular ejection fraction approximately 60% to 65%. CORONARY ANGIOGRAPHY: Left main coronary artery is free of significant disease. Left anterior descending artery has long, approximately 40% stenosis in its proximal portion. The left coronary vessels are generally of a small caliber. Left circumflex artery is nondominant and does not exhibit significant disease. Right coronary artery is large and dominant and has minimal plaques. CONCLUSIONS: 1. Relatively mild coronary artery disease. 2. Normal global left ventricular systolic function with ejection fraction is 60% to 65%. 3. Left ventricular end-diastolic pressure is 13 mmHg. DISCUSSION AND RECOMMENDATIONS: Based on results of the study, it appears appropriate to continue a conservative approach. Current regimen is being continued. Job ID: [id number] DocumentID: [id number] Dictated Date: 11/29/2021 12:54:39 Instructor Decorating Date: 11/29/2021 13:45:52 Dictated By: BERNICE GILLESPIE MD, MA, FACP, FACC,
--- NOTE | 2021-11-29 15:08 | Discharge Summary ---
Diagnosis/Chief Complaint Date of Admission Nov 28, 2021 at 10:50 Date of Discharge Admission Diagnosis a-flutter with RVR Primary Care No,Local Physician Discharge Diagnosis (1) Atrial flutter with rapid ventricular response Status: Acute Discharge Summary Discharge Physical Exam Allergies: Coded Allergies: No Known Drug Allergies (Unverified , 11/28/21) Vitals & I&Os Vital Signs Date Time Temp Pulse Resp B/P (MAP) Pulse Ox O2 Delivery O2 Flow Rate FiO2 11/29/21 17:00 101 16 140/105 97 Room Air 11/29/21 08:00 36.6 General Appearance: No Apparent Distress, WD/WN Neurologic/Psychiatric: Alert, Oriented x3 Hospital Course Pt was admitted to the hospital due to new onset atrial flutter with RVR. He was treated with IV cardizem and rate improved. He was seen by cardiology who recommended a cardiac cath. This was done and no intervention was warranted. He was discharged home in stable and improved condition with the below medications to follow up with his PCP and Dr Oshea. Labs (last 24 hrs) Microbiology 11/28/21 MRSA Screen - Final, Complete MRSA not isolated Patient resulted labs reviewed. Imaging: Reviewed Imaging Report Discussion & Recommendations Discharge Planning: >30 minutes discharge planning Discharge Home Medications: Active Scripts Active Aspirin 81 Mg Tab.chew 81 Mg PO DAILY Diltiazem 24Hr ER (Diltiazem HCl) 120 Mg Cap.er.24h 120 Mg PO DAILY Eliquis (Apixaban) 5 Mg Tablet 5 Mg PO BID Reported Multivitamin 1 Each Tablet 1 Each PO DAILY Omeprazole 20 Mg Tab.rap.dr 20 Mg PO DAILY Instructions to patient/family Please see electronic discharge instructions given to patient. Clinical Quality Measures AMI/AHF: ASA po Prior to arrival: YELENA Stephenson MD Nov 29, 2021 15:08
== END 2021-11-29 18:30 | disposition home or self-care (01) ==
LOC: ER 10:10 → ICU 10:50
PROVIDERS: ADMIT Family Medicine; ATTEND Family Medicine
DX: I48.92 Unspecified atrial flutter (principal); A08.4 Viral intestinal infection, unspecified; Z87.891 Personal history of nicotine dependence; R77.8 Other specified abnormalities of plasma proteins; R00.2 Palpitations; K21.9 Gastro-esophageal reflux disease without esophagitis; H54.7 Unspecified visual loss
CPT/HCPCS: 36415; 71045; 80053; 80061; 83735; 83874; 84100; 84484; 85025; 85610; 85730; 87081; 93005; 93306; 93458; 96374; G0378

== ENCOUNTER → 2021-12-07 | Outpatient (CLI) | payer OTHER ==
[~2021-12-07] MED LIST: APIX5TAB PO; ASPI-999 PO; DILT-27 PO; MULT-1136 PO; OMEP-401 PO
== END ==
LOC: LAB 13:10
PROVIDERS: ATTEND Internal Medicine Cardiovascular Disease
DX: I48.92 Unspecified atrial flutter (principal); G47.33 Obstructive sleep apnea (adult) (pediatric); Z79.01 Long term (current) use of anticoagulants
CPT/HCPCS: 36415; 84443

== ENCOUNTER 2022-01-14 08:16 | Outpatient (CLI) | payer OTHER | END 2022-01-14 08:35 | LOC: SLEEP 08:16 | PROVIDERS: ATTEND Otolaryngology Otolaryngology/Facial Plastic Surgery | DX: G47.33 Obstructive sleep apnea (adult) (pediatric) (principal); I48.91 Unspecified atrial fibrillation; I10 Essential (primary) hypertension | CPT/HCPCS: G0399 ==

== ENCOUNTER 2022-07-29 08:03 | Emergency (ER) | payer MEDICARE, OTHER ==
[~2022-07-29] VITALS: Ht 185.5 cm; Wt 95.3 kg
--- NOTE | 2022-07-29 08:15 | ED Cardiac General ---
History of Present Illness General Chief Complaint: Chest Pain Stated Complaint: CHEST PAINS | SOB | HX OF AFIB Nursing Triage Note: PT AMB TO [facility] 2 WITH COMPLAINT OF CP, LIGHTHEADED, AND SOA. STATES HAS HX OF AFIB. TAKES ELIQUIS AND DILATIAZEM DAILY. STATES PAIN STARTED THIS MORNING AND IS INTERMITTENT. Exam Limitations: intoxication History of Present Illness Date Seen by Provider: Jul 29, 2022 Time Seen by Provider: 08:15 Initial Comments 66-year-old male with PMH of A. 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 Patient is compliant with his medications. Denies fever, abdominal pain, diarrhea, constipation, acid reflux, heartburn, palpitations. Patient has no symptoms at all in the ER. Patient was concerned that it might be his A. fib that was causing the problems, although it has been controlled for some time. ASA po YARD PILOT: No Allergies and Home Medications Allergies Coded Allergies: No Known Drug Allergies (Unverified , 11/28/21) Patient Home Medication List Home Medication List Reviewed: Yes Apixaban (Eliquis) 5 Mg Tablet, 5 MG PO BID Prescribed by: ROBIN DAY on 11/29/21 1329 Aspirin (Aspirin) 81 Mg Tab.chew, 81 MG PO DAILY Prescribed by: ROBIN DAY on 11/29/21 1329 Diltiazem HCl (Diltiazem 24Hr ER) 120 Mg Cap.er.24h, 120 MG PO DAILY Prescribed by: ROBIN DAY on 11/29/21 1329 Multivitamin (Multivitamin) 1 Each Tablet, 1 EACH PO DAILY, (Reported) Entered as Reported by: JOSEPH ONEAL on 11/29/21 0992 Omeprazole (Omeprazole) 20 Mg Tab.rap.dr, 20 MG PO DAILY, (Reported) Entered as Reported by: JOSEPH ONEAL on 11/29/21 0956 Review of Systems Review of Systems Constitutional: no symptoms reported EENTM: No Symptoms Reported Respiratory: Shortness of Air Cardiovascular: Chest Pain Gastrointestinal: No Symptoms Reported Genitourinary: No Symptoms Reported Musculoskeletal: no symptoms reported Skin: no symptoms reported Psychiatric/Neurological: No Symptoms Reported Endocrine: No Symptoms Reported Hematologic/Lymphatic: No Symptoms Reported Past Zbbtbaw-Zpzioj-Hbotaj Hx Patient Social History Tobacco Use?: No Use of E-Cig and/or Vaping dev: No Substance use?: No Alcohol Use?: Yes Alcohol Frequency: Couple times a week Pt feels they are or have been: No Immunizations Up To Date Tetanus Booster (TDap): Unknown First/Initial COVID19 Vaccinat: MADHURI AND MADHURI- DATE UNKNOWN Second COVID19 Vaccination Buster: BOOSTER TAKEN- DATE UNKNOWN Third COVID19 Vaccination Date: - DATE UNKNOWN Family Medical History No Pertinent Family Hx Physical Exam Vital Signs Vital Signs - First Documented 07/29/22 08:06 Temp 35.7 Pulse 63 Resp 16 B/P (MAP) 149/104 (119) Pulse Ox 95 O2 Delivery Room Air Capillary Refill : Less Than 3 Seconds Height, Weight, BMI Height: '" Weight: lbs. oz. kg; 27.00 BMI Method: General Appearance: No Apparent Distress, WD/WN HEENT: PERRL/EOMI, TMs Normal, Normal ENT Inspection, Pharynx Normal Neck: Full Range of Motion, Normal Inspection, Non Tender, Supple Respiratory: Chest Non Tender, Lungs Clear, Normal Breath Sounds, No Accessory Muscle Use, No Respiratory Distress Cardiovascular: Regular Rate, Rhythm, No Edema Gastrointestinal: Normal Bowel Sounds, No Organomegaly, No Pulsatile Mass, Non Tender, Soft Extremity: Normal Range of Motion Neurologic/Psychiatric: Alert, Oriented x3, No Motor/Sensory Deficits Skin: Normal Color Lymphatic: No Adenopathy Progress/Results/Core Measures Results/Orders Lab Results Laboratory Tests Test 07/29/22 08:19 07/29/22 08:30 07/29/22 09:21 Range/Units White Blood Count 7.5 4.3-11.0 10^3/uL Red Blood Count 4.74 4.30-5.52 10^6/uL Hemoglobin 12.5 L 13.3-17.7 g/dL Hematocrit 41 40-54 % Mean Corpuscular Volume 86 80-99 fL Mean Corpuscular Hemoglobin 26 25-34 pg Mean Corpuscular Hemoglobin Concent 31 L 32-36 g/dL Red Cell Distribution Width 14.8 H 10.0-14.5 % Platelet Count 268 130-400 10^3/uL Mean Platelet Volume 10.7 9.0-12.2 fL Immature Granulocyte % (Auto) 0 % Neutrophils (%) (Auto) 67 42-75 % Lymphocytes (%) (Auto) 17 12-44 % Monocytes (%) (Auto) 10 0-12 % Eosinophils (%) (Auto) 5 0-10 % Basophils (%) (Auto) 1 0-10 % Neutrophils # (Auto) 5.1 1.8-7.8 10^3/uL Lymphocytes # (Auto) 1.3 1.0-4.0 10^3/uL Monocytes # (Auto) 0.7 0.0-1.0 10^3/uL Eosinophils # (Auto) 0.4 H 0.0-0.3 10^3/uL Basophils # (Auto) 0.1 0.0-0.1 10^3/uL Immature Granulocyte # (Auto) 0.0 0.0-0.1 10^3/uL Prothrombin Time 15.0 H 12.2-14.7 SEC INR Comment 1.1 0.8-1.4 Activated Partial Thromboplast Time 34 24-35 SEC D-Dimer <= 0.27 0.00-0.49 UG/ML Sodium Level 137 135-145 MMOL/L Potassium Level 4.2 3.6-5.0 MMOL/L Chloride Level 104 98-107 MMOL/L Carbon Dioxide Level 26 21-32 MMOL/L Anion Gap 7 5-14 MMOL/L Blood Urea Nitrogen 14 7-18 MG/DL Creatinine 1.17 0.60-1.30 MG/DL Estimat Glomerular Filtration Rate 69 BUN/Creatinine Ratio 12 Glucose Level 74 70-105 MG/DL Calcium Level 9.4 8.5-10.1 MG/DL Corrected Calcium 9.3 8.5-10.1 MG/DL Magnesium Level 2.1 1.6-2.4 MG/DL Total Bilirubin 0.4 0.1-1.0 MG/DL Aspartate Amino Transf (AST/SGOT) 19 5-34 U/L Alanine Aminotransferase (ALT/SGPT) 18 0-55 U/L Alkaline Phosphatase 67 40-136 U/L Troponin I < 0.028 <0.028 NG/ML B-Type Natriuretic Peptide 28.8 <100.0 PG/ML Total Protein 7.3 6.4-8.2 GM/DL Albumin 4.1 3.2-4.5 GM/DL TSH Pecan Gap Testing 3.55 0.35-4.94 UIU/ML Urine Color YELLOW Urine Clarity CLEAR Urine pH 6.5 5-9 Urine Specific Sparks <=1.005 1.016-1.022 Urine Protein NEGATIVE NEGATIVE Urine Glucose (UA) NEGATIVE NEGATIVE Urine Ketones NEGATIVE NEGATIVE Urine Nitrite NEGATIVE NEGATIVE Urine Bilirubin NEGATIVE NEGATIVE Urine Urobilinogen 0.2 < = 1.0 MG/DL Urine Leukocyte Esterase NEGATIVE NEGATIVE Urine RBC (Auto) NEGATIVE NEGATIVE Urine RBC NONE /HPF Urine WBC NONE /HPF Urine Squamous Epithelial Cells RARE /HPF Urine Crystals NONE /LPF Urine Bacteria NEGATIVE /HPF Urine Casts NONE /LPF Urine Mucus NEGATIVE /LPF Urine Culture Indicated NO Urine Opiates Screen NEGATIVE NEGATIVE Urine Oxycodone Screen NEGATIVE NEGATIVE Urine Methadone Screen NEGATIVE NEGATIVE Urine Propoxyphene Screen NEGATIVE NEGATIVE Urine Barbiturates Screen NEGATIVE NEGATIVE Ur Tricyclic Antidepressants Screen NEGATIVE NEGATIVE Urine Phencyclidine Screen NEGATIVE NEGATIVE Urine Amphetamines Screen NEGATIVE NEGATIVE Urine Methamphetamines Screen NEGATIVE NEGATIVE Urine Benzodiazepines Screen NEGATIVE NEGATIVE Urine Cocaine Screen NEGATIVE NEGATIVE Urine Cannabinoids Screen NEGATIVE NEGATIVE Influenza Type A (RT-PCR) Not Detected Not Detecte Influenza Type B (RT-PCR) Not Detected Not Detecte SARS-CoV-2 RNA (RT-PCR) Not Detected Not Detecte My Orders Orders - KATHRINE ALCAZAR MD Ekg Tracing (07/29/22 08:11) Cbc With Automated Diff (07/29/22 08:16) Magnesium (07/29/22 08:16) Chest 1 View, Ap/Pa Only (07/29/22 08:16) Ekg Tracing (07/29/22 08:16) Comprehensive Metabolic Panel (07/29/22 08:16) Protime With Inr (07/29/22 08:16) Partial Thromboplastin Time (07/29/22 08:16) O2 (07/29/22 08:16) Monitor-Rhythm Ecg Trace Only (07/29/22 08:16) Ed Iv/Invasive Line Start (07/29/22 08:16) Bnp George (07/29/22 08:16) Fibrin Degradation Products (07/29/22 08:16) Troponin I [place] (07/29/22 08:16) Aspirin Chewable Tablet (Baby Aspirin Ch (07/29/22 08:30) Drug Screen Stat (Urine) (07/29/22 08:16) Thyroid Analyzer (07/29/22 08:16) Ua Culture If Indicated (07/29/22 08:16) Covid 19 Inhouse Test (07/29/22 08:35) Influenza A And B By Pcr (07/29/22 08:35) Medications Given in ED Current Medications Medications Dose Ordered Sig/Yoselyn Route Start Time Stop Time Status Last Admin Dose Admin Aspirin 324 mg ONCE ONCE PO 07/29/22 08:30 07/29/22 08:31 DC 07/29/22 08:31 243 MG Vital Signs/I&O 07/29/22 08:06 Temp 35.7 Pulse 63 Resp 16 B/P (MAP) 149/104 (119) Pulse Ox 95 O2 Delivery Room Air Blood Pressure Mean: 119 Progress Progress Note : Progress Note 1. ACS RULE OUT - CXR: No acute findings -EKG and troponins were non-ischemic -Labs unremarkable -ASA 324 mg given in ER -Advised to follow-up with guest advisor, and patient has made a cardiology appointment while he was in the ER -Advised to follow-up with PCP within the next 3 to 5 days -The patient was seen in the ED, and treated appropriately to presentation at a specific point in time. Patient is informed that there is a possibility that disease and illness can evolve and change in acuity rapidly or slowly after patient is discharged from the ER. Precautionary advice given to the patient for immediate return to ER if symptoms worsen or do not resolve, and to seek emergency care sooner rather than later. Pt also advised on the importance of PCP follow up and compliance with management and follow up plan with PCP and/or specialist, as this is part of the management plan. Pt verbally expressed understanding. Diagnostic Imaging Diagonstic Imaging: Xray Plain Films/CT/US/NM/MRI: chest Comments NAME: DERRICK MERINO [facility] REC#: [id number] PT STATUS: REG ER : 1955 PHYSICIAN: KATHRINE ALCAZAR MD ADMIT DATE: 07/29/22/ER Draft Date of Exam:07/29/22 CHEST 1 VIEW, AP/PA ONLY INDICATION: Chest pain. Comparison with 11/28/2021. FINDINGS: Portable chest. The lungs are well-aerated and clear. Heart is not enlarged. No pneumothorax or pleural effusion. No bony abnormalities. IMPRESSION: Normal chest. Dictated on workstation # [id number] Dict: 07/29/22 0847 Trans: 07/29/22 0856 [facility] [id number] Interpreted by: NATIVIDAD JEAN MD Electronically signed by: Departure Impression Primary Impression: Ruled out for myocardial infarction Disposition: HOME, SELF-CARE Condition: Stable Departure-Patient Inst. Referrals: NO,LOCAL PHYSICIAN (PCP/Family) Primary Care Physician Patient Instructions: Chest Pain That Is Not Caused by the Heart (DC), Atrial Fibrillation (DC), Angina (DC) Add. Discharge Instructions: -Advised to follow-up with guest advisor, and patient has made a cardiology appointment while he was in the ER -Advised to follow-up with PCP within the next 3 to 5 days -Return to ER if symptoms worsen or continue All discharge instructions reviewed with patient and/or family. Voiced understanding. KATHRINE ALCAZAR MD Jul 29, 2022 08:15
[2022-07-29 08:29] LABS: BASOPHILS # (AUTO) 0.1 10^3/uL (0.0-0.1); BASOPHILS % (AUTO) 1 % (0-10); EOSINOPHILS # (AUTO) 0.4 10^3/uL (0.0-0.3); EOSINOPHILS % (AUTO) 5 % (0-10); HEMATOCRIT 41 % (40-54); HEMOGLOBIN 12.5 g/dL (13.3-17.7); LYMPHOCYTES # (AUTO) 1.3 10^3/uL (1.0-4.0); LYMPHOCYTES % (AUTO) 17 % (12-44); MEAN CORPUSCULAR HEMOGLOBIN 26 pg (25-34); MEAN CORPUSCULAR HGB CONC 31 g/dL (32-36); MEAN CORPUSCULAR VOLUME 86 fL (80-99); MEAN PLATELET VOLUME 10.7 fL (9.0-12.2); MONOCYTES # (AUTO) 0.7 10^3/uL (0.0-1.0); MONOCYTES % (AUTO) 10 % (0-12); NEUTROPHILS # (AUTO) 5.1 10^3/uL (1.8-7.8); NEUTROPHILS % (AUTO) 67 % (42-75); PLATELET COUNT 268 10^3/uL (130-400); WHITE BLOOD COUNT 7.5 10^3/uL (4.3-11.0)
[2022-07-29] MEDS ORDERED: ASPIRIN 81 MG CHEW (CHILDREN'S ASA) PO ONE (08:30)
[2022-07-29 08:39] LABS: BILIRUBIN,URINE NEGATIVE (NEGATIVE); CLARITY,URINE CLEAR; COLOR,URINE YELLOW; GLUCOSE, URINE (UA) NEGATIVE (NEGATIVE); KETONES,URINE NEGATIVE (NEGATIVE); LEUKOCYTE ESTERASE ,URINE NEGATIVE (NEGATIVE); NITRITE,URINE NEGATIVE (NEGATIVE); PH,URINE 6.5 (5-9); PROTEIN,URINE NEGATIVE (NEGATIVE)
[2022-07-29 08:41] LABS: INR 1.1 (0.8-1.4)
[2022-07-29 08:42] LABS: ALBUMIN 4.1 GM/DL (3.2-4.5); POTASSIUM 4.2 MMOL/L (3.6-5.0)
[2022-07-29 08:43] LABS: CALCIUM 9.4 MG/DL (8.5-10.1)
[2022-07-29 08:44] LABS: TOTAL PROTEIN 7.3 GM/DL (6.4-8.2)
[2022-07-29 08:46] LABS: BILIRUBIN,TOTAL 0.4 MG/DL (0.1-1.0)
[2022-07-29 08:48] LABS: CREATININE SERUM 1.17 MG/DL (0.60-1.30)
[2022-07-29 08:51] LABS: MAGNESIUM 2.1 MG/DL (1.6-2.4)
[2022-07-29 08:55] LABS: AMPHETAMINE SCREEN, URINE NEGATIVE (NEGATIVE); BARBITURATE SCREEN URINE NEGATIVE (NEGATIVE); BENZODIAZEPINES SCREEN URINE NEGATIVE (NEGATIVE); CANNABINOID SCREEN, URINE NEGATIVE (NEGATIVE); COCAINE SCREEN URINE NEGATIVE (NEGATIVE); METHADONE STAT NEGATIVE (NEGATIVE); OPIATE SCREEN URINE NEGATIVE (NEGATIVE); OXYCODONE STAT NEGATIVE (NEGATIVE); PROPOXYPHENE STAT NEGATIVE (NEGATIVE); TRICYCLIC ANTIDEPRESSANTS SCRE NEGATIVE (NEGATIVE)
--- NOTE | 2022-07-29 08:56 | Diagnostic Imaging Report ---
INDICATION: Chest pain. Comparison with 11/28/2021. FINDINGS: Portable chest. The lungs are well-aerated and clear. Heart is not enlarged. No pneumothorax or pleural effusion. No bony abnormalities. IMPRESSION: Normal chest. Dictated by: Dictated on workstation # [id number]
[2022-07-29 08:59] LABS: BACTERIA,URINE NEGATIVE /HPF; SQUAMOUS EPITHELIAL CELL,UR RARE /HPF
[2022-07-29 09:03] LABS: TSH (THYROID ANALYZER) 3.55 UIU/ML (0.35-4.94)
[2022-07-29 10:42] VITALS: BP 141/99
== END 2022-07-29 10:42 | disposition home or self-care (01) ==
LOC: EDUNIT# 08:03 → ER 08:05
DX: R07.89 Other chest pain (principal); I48.91 Unspecified atrial fibrillation; Z20.822 Contact with and (suspected) exposure to COVID-19; Z79.01 Long term (current) use of anticoagulants
CPT/HCPCS: 36415; 71045; 80053; 80306; 81000; 83735; 83880; 84443; 84484; 85025; 85379; 85610; 85730; 87636; 93005; 93041

== ENCOUNTER 2022-09-27 09:00 | Day surgery (SDC) | payer MEDICARE ==
[2022-09-27] VITALS (11 sets, daily range): BP systolic 121–147; BP diastolic 78–98
[~2022-09-27] VITALS: Ht 185.5 cm; Wt 99.0 kg
[2022-09-27 07:45] LABS: HEMATOCRIT 38 % (40-54); HEMOGLOBIN 11.8 g/dL (13.3-17.7); MEAN CORPUSCULAR HEMOGLOBIN 26 pg (25-34); MEAN CORPUSCULAR HGB CONC 31 g/dL (32-36); MEAN CORPUSCULAR VOLUME 83 fL (80-99); MEAN PLATELET VOLUME 10.4 fL (9.0-12.2); PLATELET COUNT 242 10^3/uL (130-400); WHITE BLOOD COUNT 5.7 10^3/uL (4.3-11.0)
[2022-09-27 07:53] LABS: CALCIUM 9.2 MG/DL (8.5-10.1); CREATININE SERUM 1.24 MG/DL (0.60-1.30); POTASSIUM 4.3 MMOL/L (3.6-5.0)
[~2022-09-27 09:00] MED LIST changes: +DILT120C85 PO; +HEParin (CATH LAB) 2,000 ML IV ONE; +LIDOCAINE 1% INJ 20 ML VIAL ONE; +LISI10TA25 PO; +MIDAZOLAM 5 MG/5 ML (VERSED) VIAL ONE; +NS IV 1000 ML 1,000 ML IV SCH; +NS IV 1000 ML 1,000 ML ONE; +fentaNYL INJ 100 MCG/2 ML AMP ONE
--- NOTE | 2022-09-27 09:26 | Pre-Op Note & Conscious Sedat ---
Pre-Operative Progress Note Date of Available H&P: Sep 16, 2022 Date H&P Reviewed: Sep 27, 2022 Time H&P Reviewed: 09:09 History & Physical: Changes noted below Changes from last HP UPDATES TODAY: Patient states has been compliant with his Eliquis without missing a dose for at least the last 3 weeks. He has had some occasional flutter but nothing sustained. He remains on diltiazem. EXAM TODAY--Regular rhythm, lungs are CTA, he has a soft right femoral artery bruit, but no palpable masses. No thrill. Left groin without bruit. Plan to proceed with AFL RFA. We will also do full EP study to assess for any inducible other SVT and pursue ablation if warranted. I again reviewed the procedure and risks of the procedure with the patient and his Hortencia. They verbalized understanding we will proceed accordingly. Consent is obtained. == From my Note 08/23/22--Also reviewed Dr. Oshea's note fromn this month: Tu Days a 67 y.o.male. HPI I had the pleasure of seeing your patient Tu Paz as a part of the [facility] at [facility] in [place] today for initial Electrophysiolgy Consultation regarding his Paroxysmal Atrial Flutter. He is typically followed and was referred by my colleague Dr. 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 Mr. Paz is an exceptionally pleasant 67 y.o. male, who is accompanied by his equally pleasant spouseHortencia. All data in this note, including the past medical history, was newly collected today. His PMHx briefly includes:Paroxysmal Atrial Flutter with RVR (11/2021); Elevated TroponinPresentedwith AFL with RVR;Cardiac Catheterization (11/29/2021)--Mild CADandNormal LVEDPby Dr. Oshea; Essential Hypertension;GERD; Hx Remote Tobaccoism; OSAS- on CPAP He has a [id number] score of 2:Age>65; HTN DETAILED UPDATED PMHx: -- 11/2021: Hospitalization for atrial flutter with rapid rates. Initaited on Diltiazem and Eliquis. -- 11/28/2021: Echocardiogram: Left Ventricle: The cavity size is normal. There is moderate concentric hypertrophy. Systolic function is normal. The estimated ejection fraction is 60-65%. There was no regional wall motion abnormalities identified. -- 11/29/21:Card Cath on Mild CAD, LVEDP 13 mmHg, LVEF 60-65% -- 12/07/21: TSHnormal 3.08 -- 06/24/2022: OV (Dr. Oshea): No changes made. Patient has upcoming consult with EP. His HPI for today is discussed in greater detail as a part of the Assessment and Plan below. FHx, SHx and ROS documented and I have reviewed. Most pertinent ROS is included/discussed throughout the note, e.g. HPI and A/P. ASSESSMENT AND PLAN: -- Paroxysmal Atrial Flutter with RVR (11/2021) -- CAD with Prior MIDuring AFL-Tropinin Rise--Nonobstructive CAD -- GERD -- Hx Remote Tobaccoism -- OSAS- on CPAP Mr. Paz,back in November presented with persistent atrial flutter. He had a small bump in his troponin at that time. That prompted cardiac catheterization which showed only mild nonobstructive CAD. By echo his LVEF was normal. On review of his ECG it appears as though he likely has atrial flutter with negative flutter waves inferiorly, however his ventricular rate is 161 bpm which would give an atrial flutter cycle length of approximately 90 ms with 2: 1 condu ction. In V1 a flutter waves are slightly less distinct but are likely positive and upright. A telemetry strip from a few hours post admission after he received some rate controlling therapy documents clear atrial flutter with a flutter cycle length of approximately 200 ms. Later telemetry strip show atrial fibrillation. It is clear that his atrial flutter degenerated to atrial fibrillation. HOWEVER, we had a lengthy discussion regarding Atrial Flutter, the pathophysiology of Atrial Flutter, the mechanism, and therapeutic options. We discussed what I call the3 R's: The Rhythm being abnormal; the Rate being R apid; and the Risk of stroke. We also discussed Atrial Fibrillation (AFIB) and the difference between Atrial Fibrillation and Atrial Flutter.. I have recommended that he pursue Rhythm Control, that is, mosque and maintenance of sinus rhythm. Regarding Rhythm Control of his AFL-->We discussed Membrane stabilizing AA drug Tx (flecainide, Rythmol, etc.) vs. EPS and RFA for a cure. We discussed the procedure of AFL RFA itself along with its associated risks, rationale, options, and benefits in detail with Tu Paz and his spouse. We discussed the risks to include, but not be limited to: , IL, stroke, cardiac perforation, complete heart block, bleeding, swelling, hematoma, infection, pneumothorax, DVT, or vascular injury. We discussed that the cure rate for CavalTricuspid Isthmus-Dependent Atrial Flutter Ablation is ~90+%. Tu Paz and his spouse/significant other, verbalized a good understanding of all of this and wish(es) toconsider whether to proceedwith an EPS and RFA as a definitive/curative procedure. I have asked him to contact our office or Dr. Oshea's office if he decides to proceed with EPS and RFA. Therefore we will schedule his procedure. He will continue his anticoagulation up to and throughout the procedure. He will continue his rate controlling medication up to and throughout the procedure. At the time of the procedure we will do a full EP study to assess for any SVT such as AVNRT. He has a present of course we will pursue ablation. We discussed the association between obstructive sleep apnea and AFL and that inadequately Tx'd sleep apnea will increase the risk of recurrent AFL and make controlling the AFIB much more difficult. Thus I emphasized the need to be strictly compliant with his CPAP, etc. And asked him to discuss with his PMD reassessing his CPAP settings if it hadn't been done over the last year. -- I have askedhimto check hispulse once daily for irregularity and/or rapidity and contact our office if it occurs and persists. I have asked himto keep a log including date, once a day HR, regular or irregular--elaborating on skipped beat or AFIB. If they have an [employer] Watch or [employer] Mobile device, I have also asked them to check once a day to confirm their rhythm. Regarding Rate--as noted he is on diltiazem CD. Fortunately has not had significant recurrences. States overall has been feeling better. He states his heart rate at home of been in the 50s to 60s bpm range. He has sinus rhythm at 53 bpm and therefore increasing his diltiazem is not an option if he had recurrent arrhythmias. He states when he presented to the ED and his tachycardia he was short of breath and had some chest pressure as well as feeling slightly lightheaded. Regarding Risk of Stroke--he is on Eliquis. He denies any bleeding issues. He denies any blood in the urine or blood in the stool. -- Sinceheis on anticoagulation, I have asked himto monitor for any signs or symptoms of bleeding, including blood in the stool or urine, etc and to contact hisPMD if any occurs. We discussed the association between inadequately treated BP andAtrial Flutter/AFIB and that inadequately treated HTN will increase the risk of recurrentAtrial Flutter/AFIB and make controlling theatrial Flutter/AFIB much more difficult. Thus I emphasized the need to monitor hisBP at home and ensure hisBP stays within the target range discussed. -- I have askedhimto Check hisBP (Blood Pressure) daily and vary the time of day hechecks it. -- We discussed that exercise helps withhisblood pressure and heshould try to get at least 30 minutes of moderate intensity exercise at least 4 days a week. -- We discussed the importance of a low salt diet up to 2 grams daily. -- We discussed thathisdesired BP is less than 140mmHg and less than 90mmHg.We discussed we would prefer his BP closer to 130/80 mmHg. -- We discussed ifhisblood pressure is above the parameters described, to contact us or [facility]. The clearly has been hypertensive at home. His BPs have been in the 140s mmHg,if not higher with diastolics in the 90s to 105 mmHg. At this time I recommended they initiate lisinopril 10 mg daily. BP will be followed up by Dr. Oshea or his KARLENE. Pre-Op Diagnosis: PAFL Conscious Sedation Pre-Proced Time 09:29 ASA Score 2 For ASA 3 and 4: Consider anesthesia and medical clearance. Also, for patients with a history of failed moderate sedation consider anesthesia. Airway Lungs Heart ASA score ASA 1: a normal healthy patient ASA 2: a patient with a mild systemic disease (mid diabetes, controlled hypertension, obesity ASA 3: a patient with a severe systemic disease that limits activity (angina, COPD, prior Myocardial infarction) ASA 4: a patient with an incapacitating disease that is a constant threat to life (CHF, renal failure) ASA 5: a moribund patient not expected to survive 24 hrs. (ruptured aneurysm) ASA 6: a declared brain- patient whose organs are being harvested. For emergent operations, add the letter E after the classification Mallampati Classification Grade 3 Sedation Plan Analgesia, Amnesia, Plan communicated to team members The patient is an appropriate candidate to undergo the planned procedure, sedation, and anesthesia. The patient immediately re-assessed prior to indication. DIEGO PASCUAL MD Sep 27, 2022 09:26
--- NOTE | 2022-09-27 09:44 | Electrophysiology Procedure ---
Electrophysiology Procedure- PROCEDURES: Cavo-tricuspid isthmus ablation (Typical Atrial Flutter Ablation) EP Study with CS catheter placement and pacing Intra-atrial pacing and interventricular pacing Moderate Sedation Anesthesia Right heart catheterization LA pacing/recording Three-dimensional intracardiac electroanatomic mapping with Carto-HoverWind BRIEF SUMMARY: Patient presented in sinus rhythm. He has a history of atrial flutter. Sheaths replacing the right femoral vein with ultrasound guidance. Access was without difficulty. Sheaths and catheters, described below were advanced up to the RA. Baseline pacing and mapping was performed through the isthmus. Conduction times were recorded. 3D mapping was completed. Then starting at 6:00 on the tricuspid annulus catheter withdrawn back creating a single line of scar tissue. Conduction block appeared to be established as the line was completed. However when reassessed counterclockwise conduction was blocked but clockwise conduction was not. It was just delayed. Therefore additional mapping was performed including activation mapping through the isthmus. Additional RF energy was applied over the line where any gaps were present this was noted around the mid section of the line of ablation and close to the IVC RA junction. Also touched up the lateral aspect of the line. At this point clear bidirectional conduction block was established demonstrated with activation mapping and 3D mapping. Full complete EP study was then performed demonstrating retrograde concentric and decremental activation, decremental antegrade activation with no evidence of preexcitation and no evidence of dual AV tatum physiology. Patient tolerated the procedure well. Catheters were removed. Patient will be discharged home later today. Follow-up will be with Dr. Oshea. ATTENDING: Bradly Burkett MD INDICATION FOR PROCEDURE: Patient is a 67yo with a history of atrial flutter that presents for ablation of clockwise Cavotricuspid isthmus Atrial Flutter via ECG. CYRIL was not performed prior to the procedure as the patient was compliant with home anticoagulation. CONSENT: The risks, benefits and alternative to the procedure has been described to the patient in detail. All questions were answered. The patient expressed understanding and has agreed to proceed. PRESENTING RHYTHM: NSR SETUP AND ACCESS: The patient was brought to the EP lab in a fasting state after informed and written consent was obtained. Cardiac rhythm, blood pressure, heart rate, respirations, oxygen saturation and level of consciousness were monitored prior to, throughout and after the procedure. Moderate sedation was administered by trained staff members. The patient was placed supine on the fluoroscopy table, prepped and draped in the usual sterile fashion. Local anesthetic was provided. Venous access was obtained using a micropuncture needle in the right femoral vein under fluoroscopic/anatomic and ultrasound guidance using the modified Seldinger technique. Ultrasound was utilized to confirm femoral venous patency. Needle access was obtained under ultrasound guidance and a permanent recording obtained. Guidewires were placed though venous access and an 8.5 Egyptian SR-0 sheaths and 7/7 Egyptian sheaths were placed in the right femoral vein. As the patient was on therapeutic anticoagulation no further heparin was provided. CATHETER PLACEMENT: Biosense Borjas ST irrigated mapping and ablation catheter was advanced through the SR-0. A BIOSENSE BORJAS DECAPOLAR DEFLECTABLE CS catheter was advanced via 7 Egyptian sheath in the right femoral vein into the CS and 20 pole deflectable bria catheter advanced via 7 Egyptian sheath in the RFV placed along the lateral RA EP STUDY AND ABLATION: The ablation catheter was placed at the His position for baseline intervals and to tejal the location on 3-D mapping. The ablation catheter was placed at 6 oclock on the tricuspid valve annulus in other locations and 3D mapping was performed. Conduction times were also measured. RF ablation was the applied in a linear fashion across the cavotricuspid isthmus using a spot and drag technique at maximum power of 35-40 Mercer at the distal isthmus and points were tagged on a 3D map. CS pacing was performed during the ablation looking for bidirectional conduction block. Bidirectional clock was achieved without complication. The post-ablation trans-isthmus conduction time was significantly longer confirming bidirectional conduction block. Bidirectional differential pacing also performed also confirming bidirectional conduction block via catheter mapping/activation sequence change. A repeat EP study was performed, including pacing and recording from the left atrium. Complete EP study also performed to ensure no other SVT present. DRUG INFUSION: Isoproterenol was not performed. Adenosine was not administered. SEDATION: I was personally responsible for the administration of moderate sedation services during the procedure performed and I confirmed requirements described in CPT section on moderate sedation were followed, including the use of an independent trained observer who had no other duties during the procedure. After providing fentanyl and midazolam, we achieved moderate conscious sedation, which was maintained throughout the procedure. The hemodynamic parameters, respiratory parameters, as well as neurological status was monitored throughout the procedure by the chemistry lab instructor staff and myself. DIAGNOSTIC EP STUDY: Baseline: Sinus bradycardia present at baseline with a cycle length of 1035 ms. CO interval is 198 ms. QRS duration is 71 ms. QT interval is 395 ms. Baseline AH interval is 142 ms Baseline HV interval was 69 ms No bundle branch block present at baseline. No evidence of preexcitation baseline No significant changes postablation. Antegrade Wenckebach block occurred at 410 MS Retrograde Wenckebach block occurred at 300 MS Antegrade AV node ERP occurred at 600/380 MS with no evidence of dual AV tatum physiology TRANS-ISTHMUS CONDUCTION: Baseline: Low lateral right atrial to pacing to PCS pacing is 89 MS LL RA pacing to PCS pacing is 92 MS Pacing map 0700 to PCS is 50 MS Pacing MAP 0600 to LL RA 61 MS Pacing the map at 0400 to LL RA was 80 MS Post-ablation: L LRA to PCS was 129 MS PCS to LL RA was 131 MS PCS to map 0 800 was 151 MS 0800 to PCS was 145 MS 0500 to LL RA was 157 MS IMPRESSION: Successful CTI-dependent Atrial Flutter ablation-- done in NSR No evidence of dual AV tatum physiology No evidence of an accessory pathway present No other SVT could be induced Complete EP study done PLAN: Pain control as needed Remove sheaths in recover once ACT <250 Bedrest 4 hours after sheath removal Anti-arrhythmic drug: None Anticoagulation: Resume Xarelto 20 mg daily as soon as 4 hours after sheath removal if hemostasis present and no hematoma Follow-up: Dr. Pitts 1 month. If patient doing well could consider cessation of anticoagulation. Also instructed patient to check his pulse on a daily basis for any irregularity or rapidity since he has a slightly increased risk of atrial fibrillation given his history of atrial flutter. BRADLY BURKETT MD Sep 27, 2022 09:44
[2022-09-27] MEDS ORDERED: fentaNYL INJ 100 MCG/2 ML AMP ONE (11:13)
[2022-09-27] MEDS ORDERED: MIDAZOLAM 5 MG/5 ML (VERSED) VIAL ONE (11:13)
[2022-09-27] MEDS ORDERED: PATIENT MAY USE OWN MEDS, ALL PO SCH (12:15)
[2022-09-27] MEDS ORDERED: NS IV 1000 ML 1,000 ML IV SCH (12:15)
--- NOTE | 2022-09-27 12:20 | Discharge Inst-Cardiology ---
Cardiology Discharge Inst. You should resume your normal activity in [address] tomorrow No lifting greater than 10 pounds for 1 week. No sexual activity of strenuous activity for 1 week. You may shower now, however no baths for 1 week. Call if any swelling, redness or bleeding from groin site. No soaking in bath tub for 1 week. DIEGO PASCUAL MD Sep 27, 2022 12:19
== END 2022-09-27 18:05 | disposition home or self-care (01) ==
LOC: CATH 09:00 → CSD 12:59 → CATH 18:05
PROVIDERS: ATTEND Internal Medicine Cardiovascular Disease
DX: I48.92 Unspecified atrial flutter (principal); Z79.01 Long term (current) use of anticoagulants; G47.33 Obstructive sleep apnea (adult) (pediatric); Z87.891 Personal history of nicotine dependence; I25.10 Atherosclerotic heart disease of native coronary artery without angina pectoris; I25.2 Old myocardial infarction; K21.9 Gastro-esophageal reflux disease without esophagitis
CPT/HCPCS: 80048; 85027; 87081; 93653; C1894 ×4; 36415